=== PATIENT | male | born 1970 | race Caucasian/White ===

== ENCOUNTER 2018-01-14 13:23 | Emergency (ER) | payer OTHER ==
[2018-01-14] MEDS: ALBUTEROL/IPRATROPIUM (NEB) 3 ML AMP HHN (13:59)
== END 2018-01-14 15:11 | disposition home or self-care (01) ==
LOC: FTE 13:23
DX: H66.93 Otitis media, unspecified, bilateral (principal); R05 Cough; H60.93 Unspecified otitis externa, bilateral
CPT/HCPCS: 71046; 94664; 99284-25

== ENCOUNTER 2018-12-06 21:42 | Emergency (ER) | payer OTHER | END 2018-12-07 03:07 | disposition home or self-care (01) | LOC: FTE 21:42 | DX: S89.92XA Unspecified injury of left lower leg, initial encounter (principal); W18.30XA Fall on same level, unspecified, initial encounter; Y92.9 Unspecified place or not applicable; Z87.891 Personal history of nicotine dependence | CPT/HCPCS: 73562; 93971; 99284-25 ==